=== PATIENT | female | born 1960 | race Caucasian/White ===

== ENCOUNTER 2019-03-29 12:55 | Emergency (ER) | payer OTHER ==
[2019-03-29 13:16] VITALS: BP 133/81
--- NOTE | 2019-03-29 13:50 | UC ---
Skin Complaint HPI - HPI Summary HPI Summary: She got a couple bug bites on her left ankle a few days ago. Now one of them is getting more painful and erythematous. - History of Current Complaint Chief Complaint: UCSkin Time Seen by Provider: 03/29/19 13:41 Stated Complaint: SKIN ISSUE Hx Obtained From: Patient Onset/Duration: Gradual Onset Skin Exposure Onset/Duration: Days Ago Timing: Constant Onset Severity: Mild Current Severity: Moderate Pain Intensity: 5 Location: Foot (Left) Aggravating Factor(s): Nothing Alleviating Factor(s): Nothing Associated Signs & Symptoms: Positive: Negative - Allergy/Home Medications Allergies/Adverse Reactions: Allergies Allergy/AdvReac Type Severity Reaction Status Date / Time Tetanus Vaccines and Toxoid Allergy Swelling Verified 03/29/19 13:16 Home Medications: Home Medications Neomycin/Bacitracin/Polymyxinb [Triple Antibiotic Ointment] 1 applic TOPICAL ONCE PRN 03/29/19 [History Confirmed 03/29/19] PMH/Surg Hx/FS Hx/Imm Hx Previously Healthy: Yes - Surgical History Surgical History: Yes Surgery Procedure, Year, and Place: left wrist - Social History Alcohol Use: Daily Substance Use Type: None Smoking Status (MU): Never Smoked Tobacco Review of Systems All Other Systems Reviewed And Are Negative: Yes Constitutional: Positive: Negative Skin: Positive: Rash Physical Exam - Summary Physical Exam Summary: She is nontoxic in appearance with stable vital signs. Triage Information Reviewed: Yes Appearance: Well-Appearing Vital Signs: Initial Vital Signs Temp 97.6 F 03/29/19 13:12 Pulse 80 03/29/19 13:12 Resp 18 03/29/19 13:12 BP 133/81 03/29/19 13:12 Pulse Ox 99 03/29/19 13:12 Vital Signs Reviewed: Yes Skin Exam: Other - She has 2 erythematous areas on her left ankle and foot. Each one is about a centimeter in diameter. Starting at the more lateral one and moving distally her skin is swollen, erythematous and tender. Course/Dx - Course Course Of Treatment: And patient getting a secondary cellulitis from the lateral bite. This is not erythema migrans and I do not suspect Lyme. I'm going to give her a prescription for Keflex and recommended follow-up with her PCP. - Diagnoses Provider Diagnosis: Ankle cellulitis Discharge - Sign-Out/Discharge Documenting (check all that apply): Patient Departure All imaging exams completed and their final reports reviewed: No Studies - Discharge Plan Condition: Stable Disposition: HOME Patient Education Materials: Cellulitis (ED) Referrals: Kelly Teixeira MD [Primary Care Provider] - - Billing Disposition and Condition Condition: STABLE Disposition: Home
== END 2019-03-29 13:55 | disposition home or self-care (01) ==
LOC: UCEAST 12:55
DX: L03.116 Cellulitis of left lower limb (principal)
CPT/HCPCS: 99212; G0463